=== PATIENT | female | born 1975 ===

== ENCOUNTER → 2019-09-02 | Emergency (ER) | payer OTHER ==
[~2019-09-02] MED LIST: NORVASC2.5 M1; PRILOSEC20 MG; SOMA250 MG; VASOTEC2.5 MG
== END | disposition left against medical advice (07) ==
LOC: ER 07:40
DX: Z53.20 Procedure and treatment not carried out because of patient's decision for unspecified reasons (principal)

== ENCOUNTER 2024-05-17 11:45 | Inpatient (IN) | payer OTHER ==
[~2024-05-17] VITALS: Ht 154.9 cm; Wt 85.3 kg
[2024-05-17] MEDS ORDERED: AVAPRO300 MG PO (14:35)
[2024-05-17] MEDS ORDERED: ATORVASTATIN CA10 MG (14:35)
[2024-05-17] MEDS ORDERED: CLONAZEPAM2 M1 PO (14:37)
[2024-05-17] MEDS ORDERED: CYMBALTA60 MG PO (14:37)
[2024-05-17] MEDS ORDERED: TORADOL60 MG IM (14:38)
[2024-05-17] MEDS ORDERED: NORFLEX (14:38)
[2024-05-17] MEDS ORDERED: ALBUTEROL0.63 MG/3 IH (14:39)
[2024-05-23] MEDS ORDERED: HEMOSTATIC MATRIX WITH THROMBIN KIT TOP ONE ×2 (06:51→07:15)
[2024-05-23] MEDS ORDERED: CEFAZOLIN SODIUM 1,000 MG VIAL ONE (06:51)
[2024-05-23] MEDS ORDERED: METHYLPREDNISOLONE ACETATE 80 MG/ML VIAL ONE (06:52)
[2024-05-23] MEDS ORDERED: METHYLPREDNISOLONE SOD SUCC 125 MG VIAL ONE ×2 (06:53→08:52)
[2024-05-23] MEDS ORDERED: CEFAZOLIN SODIUM 1,000 MG VIAL IV ONE (07:15)
[2024-05-23] MEDS ORDERED: METHYLPREDNISOLONE ACETATE 80 MG/ML VIAL IM ONE (07:15)
[2024-05-23] MEDS ORDERED: METHYLPREDNISOLONE SOD SUCC 125 MG VIAL IV ONE ×2 (07:15)
[2024-05-23] MEDS ORDERED: MEDROLPACK PO (07:24)
[2024-05-23] MEDS ORDERED: NORFLEX100MG PO (07:25)
[2024-05-23] MEDS ORDERED: COLACE100 MG PO (07:25)
[2024-05-23] MEDS ORDERED: ENALAPRILAT DIHYDRATE 1.25 MG/ML VIAL IV PRN (07:30)
[2024-05-23] MEDS ORDERED: PROMETHAZINE HCL 50 MG/ML AMPUL IM PRN (07:30)
[2024-05-23] MEDS ORDERED: 0.9 % SODIUM CHLORIDE 1,000 ML IV SCH (07:30)
[2024-05-23] MEDS ORDERED: MORPHINE SULFATE 4 MG/ML CARTRIDGE IV SCH (09:00)
[2024-05-23] MEDS ORDERED: METHYLPREDNISOLONE SOD SUCC 125 MG VIAL IV SCH (09:00)
[2024-05-23] MEDS ORDERED: DOCUSATE SODIUM 100MG CAP PO SCH (09:00)
[2024-05-23] MEDS ORDERED: FAMOtidine 20 MG TABLET PO SCH (09:00)
[2024-05-23] MEDS ORDERED: Duloxetine HCl 60 MG CAPSULE.DR PO SCH (09:00)
[2024-05-23] MEDS ORDERED: CEFAZOLIN SODIUM 1,000 MG in 0.9 % SODIUM CHLORIDE 50 ML IV SCH (09:00)
[2024-05-23] MEDS ORDERED: TAMSULOSIN HCL 0.4 MG CAP PO SCH (09:00)
[2024-05-23] MEDS ORDERED: ALBUTEROL SULFATE 3 ML/2.5 MG AMPUL.NEB IH ONE (10:29)
[2024-05-23 10:35] LABS: ABG PH 7.407 (7.35-7.45); ABG PO2 207.3 mmHg (80-100); ABG pCO2 40.6 mmHg (35-45); BASE EXCESS 0.3 mmol/l; SaO2 99.7 %; Tco2 26.2 mmol/l
[2024-05-23 11:09] LABS: allen test SATISFACTORY; o2 40 %; puncture site RADIAL LEFT
[2024-05-23 11:16] LABS: ALT/SGPT 14 U/L (12-78); AST/SGOT 10 U/L (15-37); LDH 151 U/L (84-246); PHOSPHOKINASE CREATININE 120 U/L (26-192)
[2024-05-23 14:07] VITALS: BP 135/84; O2SAT 98
[2024-05-23 14:27] VITALS: BP 135/84
[2024-05-23 16:00] VITALS: BP 136/75; O2SAT 100
[2024-05-23 20:00] VITALS: BP 118/67; O2SAT 97
[2024-05-23] MEDS ORDERED: ACETAMINOPHEN 500 MG GEL..CAP PO SCH (20:00)
[2024-05-23] MEDS ORDERED: CLONAZEPAM 1 MG TABLET PO SCH (21:00)
[2024-05-23 23:30] VITALS: BP 130/72; O2SAT 99
[2024-05-24] MEDS ORDERED: SODIUM CHLORIDE 0.45 % 1,000 ML IV SCH
[2024-05-24 04:00] VITALS: BP 135/81; O2SAT 100
[2024-05-24 06:21] LABS: HEMATOCRIT 32.5 % (36.0-45.00); HEMOGLOBIN 12.2 g/dL (12.0-15.00); MEAN CELL VOLUME 96.7 fL (80.00-100.00); MEAN CORPUSCULAR HEMOGLOBIN 36.3 pg (27.00-32.0); MEAN CORPUSCULAR HGB CONC 37.6 g/dl (32.0-36.0); PLATELET COUNT 213 K/uL (150-450); RED BLOOD COUNT 3.36 M/uL (4.00-6.00)
[2024-05-24 07:02] LABS: CALCIUM 8.8 mg/dL (8.5-10.1); CREATININE SERUM 0.71 mg/dL (0.55-1.02); GFR 87.49; POTASSIUM 4.46 mEq/L (3.5-5.1)
[2024-05-24 07:54] LABS: RED CELL DISTRIBUTION WIDTH 18.1 % (11.5-14.5)
[2024-05-24 08:40] VITALS: BP 137/79; O2SAT 98
[2024-05-24] MEDS ORDERED: AMLODIPINE BESYLATE 10 MG TABLET PO SCH (09:00)
[2024-05-24] MEDS ORDERED: IRBESARTAN 300 MG TABLET PO SCH (09:00)
[2024-05-24 11:59] VITALS: BP 128/79; O2SAT 98
== END 2024-05-24 17:58 | DRG 473 ==
LOC: PED 05-23 04:00 → O/R 05-23 04:00 → SURH 05-23 07:00 → PED 05-23 12:47
PROVIDERS: Anesthesiology; ADMIT Orthopaedic Surgery Orthopaedic Surgery of the Spine; ATTEND Orthopaedic Surgery Orthopaedic Surgery of the Spine
PROC: 0RT30ZZ Resection of Cervical Vertebral Disc, Open Approach (ICD-10-PCS; 2024-05-23)
PROC: 0PB40ZZ Excision of Thoracic Vertebra, Open Approach (ICD-10-PCS; 2024-05-23)
PROC: 07DS0ZZ Extraction of Vertebral Bone Marrow, Open Approach (ICD-10-PCS; 2024-05-23)
PROC: 4A1104G Monitoring of Peripheral Nervous Electrical Activity, Intraoperative, Open Approach (ICD-10-PCS; 2024-05-23)
PROC: 0RG20A0 Fusion of 2 or more Cervical Vertebral Joints with Interbody Fusion Device, Anterior Approach, Anterior Column, Open Approach (ICD-10-PCS; principal; 2024-05-23 07:00)
DX: M50.023 Cervical disc disorder at C6-C7 level with myelopathy (principal); M50.21 Other cervical disc displacement, high cervical region; M50.022 Cervical disc disorder at C5-C6 level with myelopathy; F41.9 Anxiety disorder, unspecified; I10 Essential (primary) hypertension; M50.021 Cervical disc disorder at C4-C5 level with myelopathy